=== PATIENT | male | born 1975 | race Caucasian/White ===

== ENCOUNTER 2016-07-12 11:07 | Emergency (ER) | payer OTHER | END 2016-07-12 12:32 | disposition home or self-care (01) | DX: S93.401A Sprain of unspecified ligament of right ankle, initial encounter (principal); X50.0XXA Overexertion from strenuous movement or load, initial encounter; Y99.0 Civilian activity done for income or pay | CPT/HCPCS: 1040M; 73610; 99282; 99283 ==